=== PATIENT | female | born 1995 | race African-American/Black ===

== ENCOUNTER 2021-08-31 16:11 | Emergency (ER) | payer OTHER ==
[~2021-08-31] VITALS: Ht 157.5 cm; Wt 45.8 kg
[2021-08-31] MEDS ORDERED: CYCL5TAB PO (17:45)
[2021-08-31] MEDS ORDERED: IBUP-1955 PO (17:45)
--- NOTE | 2021-08-31 19:30 | NUR ---
PT SEEN AND EVALUATED BY DR WHITEHEAD.
[2021-08-31 19:31] VITALS: BP 112/68
--- NOTE | 2021-08-31 19:31 | NUR ---
DISCHARGE INSTRUCTIONS GIVEN PER MD ORDER.
== END 2021-08-31 19:32 | disposition home or self-care (01) ==
LOC: ER 16:14
DX: S09.90XA Unspecified injury of head, initial encounter (principal); V43.62XA Car passenger injured in collision with other type car in traffic accident, initial encounter; Y92.410 Unspecified street and highway as the place of occurrence of the external cause; M79.10 Myalgia, unspecified site; J45.909 Unspecified asthma, uncomplicated
CPT/HCPCS: A4663